=== PATIENT | female | born 1975 | race Caucasian/White ===

== ENCOUNTER 2017-11-13 09:46 | Emergency (ER) | END 2017-11-13 10:37 | disposition home or self-care (01) ==

== ENCOUNTER 2018-04-24 19:47 | Emergency (ER) | END 2018-04-24 22:07 | disposition home or self-care (01) ==

== ENCOUNTER 2018-07-29 15:18 | Emergency (ER) | payer OTHER ==
[~2018-07-29] VITALS: Wt 79.5 kg
[~2018-07-29 15:18] MED LIST: ACET1TAB40 PO; HYDR-3980 PO; IBUP800T48 PO; ONDA4TAB14 PO; PRED20TA PO
--- NOTE | 2018-07-29 18:51 | ERD ---
ER Documentation Chief Complaint Chief Complaint pearl earache, sore throat HPI Patient is a 43-year-old female with past medical history of diabetes who presents to the ED with complaints of ongoing sore throat and hoarseness for the past 1 month. She states her throat pain is worse in the mornings and feels like she has mucus stuck in her throat. Patient states she saw her primary care physician 15 days ago and was prescribed cetirizine, prednisone, penicillin. She states she has not been having any relief and started to develop bilateral ear pain about a week ago. Denies any drooling, shortness of breath or wheezing. She also reports a fever of 102F 2 days ago. Patient is currently afebrile here in the ED. She is able to tolerate liquids and foods otherwise. She denies any history of similar pain. Denies cough, nausea, vomiting, abdominal pain. She is otherwise healthy with no other complaints ROS All systems reviewed and are negative except as per history of present illness. Medications Home Meds Active Scripts Fluticasone Propionate (Flonase Allergy Relief) 9.9 Ml [place].susp, 1 SPRAY NASAL BID, #1 BOTTLE TO EACH NOSTRIL Prov:SENTHIL CAPUTO PA-C 07/29/18 Ibuprofen* (Motrin*) 800 Mg Tab, 800 MG PO Q6H PRN for PAIN AND OR ELEVATED TEMP, #30 TAB Prov:DEMETRIUS HOYOS 04/24/18 Acetaminophen with Codeine (Acetaminophen-Cod #3 Tablet) 1 Each Tablet, 1 TAB PO Q6H PRN for severe pain, #20 TAB Prov:DEMETRIUS HOYOS 04/24/18 Ondansetron (Ondansetron Odt) 4 Mg Tab.rapdis, 4 MG PO Q6H PRN for NAUSEA AND/OR VOMITING, #10 TAB Prov:CHOLO AVERY MD 11/13/17 Prednisone* (Prednisone*) 20 Mg Tab, 40 MG PO DAILY for 5 Days, TAB Prov:CHOLO AVERY MD 11/13/17 Ibuprofen* (Motrin*) 800 Mg Tab, 800 MG PO Q6H PRN for PAIN AND OR ELEVATED TEMP, #30 TAB Prov:CHOLO AVERY MD 11/13/17 Hydrocodone/Acetaminophen ([place] 10-325 Tablet) 1 Each Tablet, 1 TAB PO Q6H PRN for PAIN, #7 TAB Prov:CHOLO AVERY MD 11/13/17 Allergies Allergies: Coded Allergies: morphine (Verified Allergy, Unknown, 04/24/18) PMhx/Soc Hx Miscellaneous Medical Probl: Yes (DIABETES) Hx Alcohol Use: No Hx Substance Use: No Hx Tobacco Use: No Smoking Status: Never smoker Physical Exam Vitals Vital Signs Date Temp Pulse Resp B/P (MAP) Pulse Ox O2 O2 Flow FiO2 Time Delivery Rate 07/29/18 78 16 121/70 98 Room Air 19:44 (87) 07/29/18 98.7 81 20 114/74 97 15:45 (87) Physical Exam Const: No acute distress Head: Atraumatic. No sinus tenderness to palpation ENT: Normal External Ears, Nose and Mouth. + Posterior oropharynx erythema. Cobblestoning noted. No tonsillar edema or exudates. Uvula midline. No trismus. B/L TMs nonerythematous and nonbulging. Neck: Full range of motion. No meningismus. + bilateral cervical LAD Resp: Clear to auscultation bilaterally Cardio: Regular rate and rhythm, no murmurs Neur: Awake and alert Psych: Normal Mood and Affect Results 24 hrs Current Medications Medications Dose Sig/Souleymane Start Time Status Last (Trade) Ordered Route PRN Stop Time Admin Dose Reason Admin Famotidine 20 mg ONCE ONCE 07/29/18 DC 07/29/18 (Pepcid) PO 19:00 18:50 07/29/18 19:01 10 mg ONCE ONCE 07/29/18 DC 07/29/18 Dexamethasone IM 19:00 18:50 (Decadron) 07/29/18 19:01 Procedures/MDM Pt is a 43 year old F with PMHx of DM who presents to the ED with complaints of ongoing sore throat x 1 month. She has no signs of respiratory distress on physical exam. No hypoxia or fevers. 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 Rapid strep was deferred since pt has been taking abx and results would have been unreliable. Pt's hx and physical is most consistent with laryngitis secondary to PND vs GERD. She was given IM Decadron and Pepcid with improvement of her pain. No signs of impending cardiovascular collapse. I prescribed her Flonase and recommended she follow up with her PC P in 2 days. Continue with voice rest and finish abx and steroids as prescribed by her doctor. If sx do not improve, I recommend ENT/GI referral for endoscopy. Strict return precautions given. PRESCRIPTIONS: Flonase. Pt already has Prednison, Cetirizine, Amoxicillin SPECIALIST FOLLOW UP RECOMMENDED: ENT, GI Patient has been advised to follow up with primary care in 1-2 days. Departure Diagnosis: Primary Impression: Laryngitis Additional Impression: PND (post-nasal drip) Condition: Stable Patient Instructions: Laryngitis Referrals: [facility] Additional Instructions: Follow up with your regular doctor in 2 days. Return to the ED for any new or worsening symptoms. SENTHIL CAPUTO PA-C Jul 29, 2018 18:51
[2018-07-29] MEDS ORDERED: FAMOTIDINE 20 MG TAB PO ONE (19:00)
[2018-07-29] MEDS ORDERED: DEXAMETHASONE 10 MG/ML 1 ML INJ IM ONE (19:00)
[2018-07-29] MEDS ORDERED: FLUT9.9S NASAL (19:30)
[2018-07-29 19:44] VITALS: BP 121/70; PULSE 78; RESP 16
== END 2018-07-29 19:44 | disposition home or self-care (01) ==
LOC: FTE 15:18
DX: J04.0 Acute laryngitis (principal); R09.82 Postnasal drip; E11.9 Type 2 diabetes mellitus without complications
CPT/HCPCS: 96372; J1100; Z7502; Z7610